=== PATIENT | female | born 1980 | race Caucasian/White ===

== ENCOUNTER 2020-07-01 03:05 | Inpatient (IN) | payer OTHER ==
[2020-07-01] MEDS ORDERED: DEXTROSE 5%-LACTATED RINGERS 1,000 ML IV SCH (04:15)
[2020-07-01 04:27] LABS: BASO % 0.2 % (0-2.0); EOS % 0.3 % (0-4.5); HEMATOCRIT 35.2 % (32.4-45.2); HEMOGLOBIN 11.9 GM/dL (10.7-15.3); LYMPH % 13.6 % (8-40); MCHC 33.7 g/dl (32.0-36.0); MEAN CELL VOLUME 88.9 fl (80-96); MEAN PLT VOLUME 10.8 fl (7.5-11.1); NEUT % 77.9 % (42.8-82.8); PLATELET COUNT 135 K/MM3 (134-434); RBC 3.96 M/mm3 (3.60-5.2); RDW 13.7 % (11.6-15.6); WHITE BLOOD COUNT 11.5 K/mm3 (4.0-10.0)
[2020-07-01 04:30] VITALS: BMI 32.2
[2020-07-01 04:32] LABS: INR 0.92 (0.83-1.09); PROTHROMBIN TIME (PATIENT) 11.2 SEC (9.7-13.0)
[2020-07-01 04:35] LABS: ACTIVATED PTT 24.8 SECONDS (25.2-36.5)
[2020-07-01 04:40] LABS: POTASSIUM 4.1 mmol/L (3.5-5.1)
[2020-07-01 04:42] LABS: BLOOD UREA NITROGEN 8.8 mg/dL (7-18); CALCIUM 8.3 mg/dL (8.5-10.1)
[2020-07-01 04:46] LABS: CREATININE 0.6 mg/dL (0.55-1.3)
[2020-07-01] MEDS ORDERED: FENTANYL/BUPIVACAINE/NS/PF - PCEA - 50 ML DISP.SYRIN EP ONE ×3 (05:05→10:20)
[2020-07-01] MEDS ORDERED: PCA PUMP NR ONE ×2 (05:06→07:24)
[2020-07-01] MEDS ORDERED: ELECTROLYTE-148 SOLN 1,000 ML IV SCH (05:15)
[2020-07-01] MEDS ORDERED: NALOXONE HCL 0.4 MG/ML VIAL IVPUSH PRN (05:22)
[2020-07-01] MEDS ORDERED: BUPIVACAINE HCL/PF 0.25% (2.5MG/ML) 10 ML VIAL ONE (05:24)
[2020-07-01] MEDS ORDERED: FENTANYL/BUPIVACAINE/NS/PF - PCEA - 50 ML DISP.SYRIN EP SCH (05:30)
[2020-07-01] MEDS ORDERED: OXYTOCIN 30 UNITS in 0.9% NS 30 UNIT/500 ML INFUS.BAG IVPB SCH (05:30)
[2020-07-01] MEDS ORDERED: OXYTOCIN 30 UNITS in 0.9% NS 30 UNIT/500 ML INFUS.BAG IVPB ONE (07:24)
[2020-07-01] MEDS ORDERED: OXYTOCIN 20 UNITS in 0.9% NS 20 UNIT/1,000 ML INFUS.BAG IV ONE (09:53)
[2020-07-01] MEDS: OXYTOCIN 20 UNITS in 0.9% NS 20 UNIT/1,000 ML INFUS.BAG IV SCH ×2 (11:15→17:01)
[2020-07-01] MEDS ORDERED: METHYLERGONOVINE MALEATE 0.2 MG/1 ML AMP IM PRN (11:33)
[2020-07-01] MEDS ORDERED: WITCH HAZEL 50% (TUCKS) 40 PAD/JAR PAD TP PRN (11:33)
[2020-07-01] MEDS ORDERED: BISACODYL 10 MG SUPP.RECT RC PRN (11:33)
[2020-07-01] MEDS ORDERED: BENZOCAINE 20% 57 GM BOTTLE TP PRN (11:33)
[2020-07-01] MEDS ORDERED: BENZOCAINE 28 GM HEMORRHOIDAL OINTMENT TP PRN (11:33)
[2020-07-01] MEDS ORDERED: oxyCODONE HCL 5 MG TABLET PO PRN (11:35)
[2020-07-01 12:21] LABS: CORD BASE EXCESS -7.8 mmol/L (0-2); CORD HCO3 16.8 mmHg (20-29); CORD PCO2 32.7 mmHg (30-78); CORD pH 7.329 (7.14-7.44)
[2020-07-01] MEDS ORDERED: CEFAZOLIN 2 GM/D5W 2 GM/50 ML ML IVPB ONE ×2 (12:21→12:45)
[2020-07-01] MEDS ORDERED: ACETAMINOPHEN 325 MG TABLET (FP) ONE (12:22)
[2020-07-01 12:24] LABS: CORD HCO3 26.3 mmHg (20-29); CORD PCO2 57.6 mmHg (30-78); CORD pH 7.278 (7.14-7.44)
[2020-07-01] MEDS: IBUPROFEN 600 MG TABLET (FP) PO PRN ×3 (12:25→22:24)
[2020-07-01] MEDS: ACETAMINOPHEN 325 MG TABLET (FP) PO PRN ×3 (12:25→20:12)
[2020-07-01] MEDS ORDERED: IBUPROFEN 600 MG TABLET (FP) PO ONE (12:27)
[2020-07-01] MEDS: FERROUS SO4 325 MG TABLET (FP) PO SCH (22:03)
[2020-07-02 06:50] LABS: BASO % 0.5 % (0-2.0); EOS % 0.2 % (0-4.5); HEMATOCRIT 31.5 % (32.4-45.2); LYMPH % 12.4 % (8-40); MCH 30.7 pg (25.7-33.7); MCHC 35.1 g/dl (32.0-36.0); MEAN CELL VOLUME 87.6 fl (80-96); MEAN PLT VOLUME 10.3 fl (7.5-11.1); NEUT % 80.9 % (42.8-82.8); PLATELET COUNT 132 K/MM3 (134-434); RDW 13.9 % (11.6-15.6); WHITE BLOOD COUNT 14.5 K/mm3 (4.0-10.0)
[2020-07-02] MEDS: FERROUS SO4 325 MG TABLET (FP) PO SCH ×2 (09:25→21:12)
[2020-07-02] MEDS: PRENATAL VITAMINS W/ FOLIC ACID TABLET (FP) PO SCH (09:25)
[2020-07-02] MEDS ORDERED: ONDANSETRON 4 MG/2 ML VIAL IVPUSH PRN (15:27)
[2020-07-02] MEDS: IBUPROFEN 600 MG TABLET (FP) PO PRN (19:38)
[2020-07-02] MEDS: ACETAMINOPHEN 325 MG TABLET (FP) PO PRN (19:38)
[2020-07-02] MEDS ORDERED: SENNOSIDES/DOCUSATE COMBO (SENNA PLUS) TABLET (UD) PO PRN (22:00)
[2020-07-03 08:32] LABS: BASO % 0.5 % (0-2.0); EOS % 0.6 % (0-4.5); HEMATOCRIT 32.3 % (32.4-45.2); HEMOGLOBIN 11.2 GM/dL (10.7-15.3); LYMPH % 20.2 % (8-40); MCHC 34.8 g/dl (32.0-36.0); MEAN CELL VOLUME 89.2 fl (80-96); MEAN PLT VOLUME 10.7 fl (7.5-11.1); NEUT % 72.7 % (42.8-82.8); PLATELET COUNT 147 K/MM3 (134-434); RBC 3.63 M/mm3 (3.60-5.2); RDW 13.9 % (11.6-15.6)
[2020-07-03] MEDS: IBUPROFEN 600 MG TABLET (FP) PO PRN (09:59)
[2020-07-03] MEDS: FERROUS SO4 325 MG TABLET (FP) PO SCH (10:00)
[2020-07-03] MEDS: PRENATAL VITAMINS W/ FOLIC ACID TABLET (FP) PO SCH (10:01)
[2020-07-03] MEDS: ACETAMINOPHEN 325 MG TABLET (FP) PO PRN (10:01)
[2020-07-03 16:32] VITALS: BP 106/70; PULSE 88; TEMP 98.8
== END 2020-07-03 16:05 | disposition home or self-care (01) | DRG 807 ==
LOC: JDEL 03:05 → JLDR 04:10 → J3W 13:58
PROVIDERS: ADMIT Obstetrics & Gynecology; ATTEND Obstetrics & Gynecology
PROC: 10E0XZZ Delivery of Products of Conception, External Approach (ICD-10-PCS; principal; 2020-07-01)
PROC: 0W8NXZZ Division of Female Perineum, External Approach (ICD-10-PCS; 2020-07-01)
DX: O80 Encounter for full-term uncomplicated delivery (principal); Z3A.39 39 weeks gestation of pregnancy; Z37.0 Single live birth
CPT/HCPCS: 36415; 36600; 59409; 80048; 82803; 85025; 85610; 85730; 86780; 86850; 86900; 86901